=== PATIENT | female | born 1980 | race Caucasian/White ===

== ENCOUNTER 2020-12-13 11:43 | Emergency (ER) | payer OTHER ==
[2020-12-13 13:47] LABS: BASOPHIL 0.4 % (0-2); EOSINOPHIL 2.4 % (0-5); HCT 36.5 % (37.0-47.0); HGB 11.6 g/dl (12.5-16.0); LYMPHOCYTE 18.2 % (15-48); MCH 27.5 pg (25.0-31.0); MCHC 31.8 g/dL (32.0-36.0); MCV 86.5 fL (78.0-100.0); MONOCYTE 7.6 % (0-12); MPV 9.4 fL (6.0-9.5); NEUTROPHIL 71.2 % (41-80); NRBC 0; PLT 202 K/uL (150-400); RBC 4.22 M/uL (4.20-5.40); RDW 13.7 % (11.5-14.0); WBC 4.6 K/uL (4.0-10.5)
[2020-12-13 14:37] LABS: CREATININE 0.85 mg/dL (0.51-0.95); POTASSIUM 3.8 mmol/L (3.5-5.1)
== END 2020-12-13 14:17 | disposition home or self-care (01) ==
LOC: FER 11:43
PROVIDERS: Emergency Medicine
DX: L02.01 Cutaneous abscess of face (principal); L03.211 Cellulitis of face; R03.0 Elevated blood-pressure reading, without diagnosis of hypertension; R22.41 Localized swelling, mass and lump, right lower limb; F17.200 Nicotine dependence, unspecified, uncomplicated; Z86.14 Personal history of Methicillin resistant Staphylococcus aureus infection
CPT/HCPCS: 36415; 80048; 85025; 87070; 87077; 87186; 87205; 93971